=== PATIENT | female | born 1990 | race Caucasian/White ===

== ENCOUNTER → 2019-08-24 14:57 | Outpatient (BNVA) | payer BC, OTHER, SELFPAY | PROVIDERS: Family Provider Family Medicine; PCP Family Medicine; Visit Provider Obstetrics & Gynecology | DX: Z01.89 Encounter for other specified special examinations (principal) ==

== ENCOUNTER 2020-08-12 14:36 | Outpatient (CLI) | payer BC, SELFPAY ==
--- NOTE | 2020-08-12 15:00 | XRR_ITS ---
PROCEDURE INFORMATION: Exam: XR Abdomen, 1 View Exam date and time: 08/12/2020 2:50 PM Age: 29 years old Clinical indication: Condition or disease; Kidney or ureter condition; Calculus (stone) in kidney; Prior surgery; Surgery type: Lithotripsy; Additional info: HX of kidney stones TECHNIQUE: Imaging protocol: XR of the abdomen. Views: Frontal supine view of the abdomen. 1 View. COMPARISON: CR XR KUB [id number] 04/24/2018 7:13 AM FINDINGS: Gastrointestinal tract: Normal. No bowel dilation. Organs: Negative for radiographic evidence of urinary tract stones Bones/joints: Unremarkable. XR/XR KUB [id number] IMPRESSION: No acute findings.
== END 2020-08-12 14:37 | disposition home or self-care (01) ==
PROVIDERS: Family Provider Family Medicine; PCP Family Medicine; Visit Provider Urology
DX: Z87.442 Personal history of urinary calculi (principal)
CPT/HCPCS: 74018; 81003

== ENCOUNTER → 2020-08-29 16:43 | Outpatient (BNVA) | payer BC, SELFPAY | PROVIDERS: Family Provider Family Medicine; PCP Nurse Practitioner Family; Visit Provider Obstetrics & Gynecology | DX: R53.83 Other fatigue (principal); Z30.9 Encounter for contraceptive management, unspecified | CPT/HCPCS: 84443; 85027 ==

== ENCOUNTER 2022-08-17 13:24 | Outpatient (CLI) | payer BC, SELFPAY ==
--- NOTE | 2022-08-17 13:36 | XR_ITS ---
WS: [id number] Exam: XR KUB [id number] Date/Time of Exam: 08/17/2022 1:38 PM Reason For Exam: Urolithiasis No bowel obstruction or free air. Visualized organ margins are intact. 3 mm calcification superimpose s the lower pole the left kidney and may represent a renal stone. Bony structures are intact. Slight dextroscoliosis at the thoracolumbar junction. XR/XR KUB [id number] IMPRESSION: 1. No acute abdominal finding. 2. 3 mm calcification superimposing the left renal silhouette could represent a small renal stone.
== END 2022-08-17 13:25 | disposition home or self-care (01) ==
PROVIDERS: PCP Nurse Practitioner Family; Visit Provider Urology
DX: N20.0 Calculus of kidney (principal)
CPT/HCPCS: 74018; 81003

== ENCOUNTER → 2022-11-25 16:20 | Outpatient (BNVA) | payer BC, SELFPAY | PROVIDERS: PCP Nurse Practitioner Family; Visit Provider Nurse Practitioner Women's Health | DX: Z12.4 Encounter for screening for malignant neoplasm of cervix (principal) | CPT/HCPCS: 87624 ==

== ENCOUNTER 2023-02-20 10:11 | Emergency (ER) | payer BC, SELFPAY ==
[2023-02-20 10:16] VITALS: BP 131/86; PULSE 94; RESP 18; TEMP 36.4; O2SAT 99; BMI 24.7
[2023-02-20] MEDS: sodium chloride 0.9% 1,000 ML 999 ML IV (10:32)
[2023-02-20] MEDS: ondansetron 2 mg/ML SDV 2 mL 4 MG IVP (10:32)
[2023-02-20 10:38] VITALS: BP 131/86; PULSE 98; RESP 18; O2SAT 95
--- NOTE | 2023-02-20 10:42 | CTR_ITS ---
PROCEDURE INFORMATION: Exam: CT Abdomen And Pelvis With Contrast Exam date and time: 02/20/2023 11:01 AM Age: 32 years old Clinical indication: Abdominal pain; Localized; Right upper quadrant (ruq); Additional info: Ruq pain, vomiting TECHNIQUE: Imaging protocol: Computed tomography of the abdomen and pelvis with contrast. Radiation optimization: All CT scans at this facility use at least one of these dose optimization techniques: automated exposure control; mA and/or kV adjustment per patient size (includes targeted exams where dose is matched to clinical indication); or iterative reconstruction. Contrast material: OMNI 350; Contrast volume: 100 ml; Contrast route: INTRAVENOUS (IV); REPORTING DATA: Count of CT and Cardiac NM exams in prior 12 months: This patient has received 0 known CTs and 0 known cardiac nuclear medicine studies in the 12 months prior to the current study. COMPARISON: CT abdomen pelvis w con* [id number] 11/17/2017 10:18 AM RADIATION DOSE METRICS: Total DLP (mGy-cm): 487.08 FINDINGS: Liver: Area of hypoattenuation along the anterior margin of the liver adjacent to the falciform ligament consistent with focal fatty infiltration. Gallbladder and bile ducts: The gallbladder appears unremarkable. No intra- or extra-hepatic biliary ductal dilatation. Pancreas: The pancreas appears normal. Spleen: Small splenule noted. The spleen appears unremarkable. Adrenal glands: The adrenals appear normal. Kidneys and ureters: 3 mm stone in the lower pole of the left kidney. No ureteral stones identified. No signs of urinary obstruction. Stomach and bowel: The stomach is unremarkable. The small bowel loops are not abnormally dilated. The large bowel loops are not abnormally dilated. Appendix: The appendix appears normal. Intraperitoneal space: No ascites or significant fluid collection. Vasculature: The aorta is nonaneurysmal. The IVC appears normal. Lymph nodes: There are no enlarged lymph nodes. Urinary bladder: The urinary bladder is not well distended, therefore not well evaluated. Reproductive: 14 mm fluid density cyst in the right adnexal region. The uterus appears normal. Bones/joints: Unremarkable. Soft tissues: Unremarkable. CT/CT abdomen pelvis w con* [id number] IMPRESSION: 1. No acute abdominopelvic abnormality identified. 2. The gallbladder appears unremarkable. 3. Left-sided nephrolithiasis. No signs of urinary obstruction.
--- NOTE | 2023-02-20 10:43 | ED_ITS ---
Documented by User: Shae Gonzales PA-C 02/20/23 11:58 HPI - Nausea/Vomiting/Diarrhea General: Chief complaint: Nausea/Vomiting/Diarrhea Stated complaint: n/v Time Seen by Provider: 02/20/23 10:15 Source: patient Mode of arrival: ambulatory Limitations: no limitations History of Present Illness: 32-year-old female presents to the ER today for nausea and vomiting for the last 3 days. Patient reports 1 week ago she started with congestion fever and body aches. Patient reports that lasted until . On patient finally had an appetite so she ate a steak for dinner. Patient reports by Tuesday morning she was vomiting profusely. Patient reports multiple episodes of vomiting each day. Patient reports no blood in her vomit. Denies any diarrhea. Patient reports pain in her chest from the amount she is thrown up. She describes this as a burning pain. She is been unable to keep any liquids or solids down for the last 48+ hours. Patient denies any close sick contacts. Denies any recent travel or swimming in any [place] or [place]. Patient has not t ried anything for her symptoms at this time. Denies any urinary symptoms or pain with urination. LMP was 1 week ago. Patient is on control. Review of Systems General: Reports: 10 or more systems reviewed and unremarkable except in HPI and below PFSH ED PFSH: Medical History Asthma As a child Chronic GERD Urolithiasis Surgical History History of lithotripsy (06/13/14) Laser lithotripsy of right ureteral stone treated by Dr. Mckeon at [facility] [place]. Family History Mother Hypertension Thyroid condition Father Hypertension Hyperlipidemia Grandmother Hypertension Diabetes Maternal Heart disease maternal Breast cancer paternal Grandfather Hypertension Unknown Stroke Social History Smoking and tobacco status: former smoker Alcohol intake: current Alcohol intake frequency: few times a month Marital status: Physical Exam Const: COMMON NORMALS: average body habitus, patient oriented x3, no limitations, healthy appearing, alert and well nourished HENMT: COMMON NORMALS: normocephalic, atraumatic, external ears normal, Normal external nose present, moist oral mucous membranes and oropharynx normal HEAD & SCALP: normocephalic and atraumatic NOSE: Normal external nose present EXTERNAL EAR: Yes external ears normal Resp: COMMON NORMALS: normal respiratory effort, No retractions and clear to auscultation bilaterally AUSCULTATION: clear to auscultation bilaterally Cardio: COMMON NORMALS: regular rate, regular rhythm and No murmurs present (Cardio) RATE: regular rate RHYTHM: regular rhythm GI: COMMON NORMALS: Normal to inspection, nondistended, normoactive bowel sounds present and Soft to palpation PALPATION: Yes Soft to palpation and Yes Tenderness to palpation present (GI) Details: RLQ and RUQ (RUQ worse than RLQ) Extremity: COMMON NORMALS: normal to inspection and full ROM Neuro: COMMON NORMALS: patient oriented x3 SENSORIUM/ORIENTATION: Yes alert Psych: COMMON NORMALS: mental status grossly normal, Normal thought process present and cooperative THOUGHT PROCESS: Normal thought process present Skin: COMMON NORMALS: no rashes or lesions noted and no wounds GENERAL SKIN EXAM: no rashes or lesions noted Course ED course: Patient presents with greater than 48 hours of vomiting. No diarrhea associated. Recent upper respiratory infection but symptoms of that have improved. We will go ahead and start fluids and Zofran for symptoms. Based on physical exam, would recommend we go ahead with a CT abdomen pelvis. Patient is tender in the right upper quadrant with mild right lower quadrant tenderness. We will also get lab work. Vital Signs: Vital signs: Vital Signs Temperature 97.5 F L 02/20/23 10:16 Pulse Rate 92 02/20/23 12:02 Respiratory Rate 18 02/20/23 12:02 Blood Pressure 113/87 02/20/23 12:02 Pulse Oximetry 99 02/20/23 12:02 Oxygen Delivery Me thod Room Air 02/20/23 12:02 MDM - Nausea/Vomiting/Diarrhea Medical Decision Making Patient has a slightly elevated white count however all of the labs are mostly unremarkable. Likely the abnormals are related to patient's probable gastritis/gastroenteritis. Unlikely this is a traveler's diarrhea given patient does not currently have any diarrhea-like symptoms. We will send patient home with Zofran for nausea and omeprazole for the gastritis type of symptoms. Patient's CT of the abdomen pelvis was mostly unremarkable other than a chance finding of some nephrolithiasis however patient is asymptomatic for that. Re commend patient take these medications and if symptoms or not improving in 2 to 3 days, follow-up with PCP. We discussed the brat diet and making sure to ease into eating. Push fluids and use Gatorade/Pedialyte to replenish electrolytes. Return to the ER with any new or worsening symptoms. Patient verbalized understanding and was in agreement with the treatment plan. Lab Data 02/20/23 10:30 02/20/23 10:30 Radiology Impressions Abdomen/Pelvis CT 02/20/23 10:42 IMPRESSION: 1. No acute abdominopelvic abnormality identified. 2. The gallbladder appears unremarkable. 3. Left-sided nephrolithiasis. No signs of urinary obstruction. Laboratory Results WBC 11.6 10^3/uL (4.0-10.0) H 02/20/23 10:30 RBC 5.41 10^6/uL (4.1-5.3) H 02/20/23 10:30 Hgb 15.5 g/dL (11.5-15.3) H 02/20/23 10:30 Hct 46.7 % (37.0-47.0) 02/20/23 10:30 MCV 86.3 fl (81-99) 02/20/23 10:30 MCH 28.7 pg (28.0-34.0) 02/20/23 10:30 MCHC 33.2 g/dL (30.0-36.0) 02/20/23 10:30 RDW 13.2 % (12.1-15.1) 02/20/23 10:30 Plt Count 402 10^3/cmm (130-400) H 02/20/23 10:30 MPV 10.5 fL (7.4-10.4) H 02/20/23 10:30 Neut % (Auto) 61.4 % 02/20/23 10:30 Lymph % (Auto) 31.5 % 02/20/23 10:30 [place] % (Auto) 5.4 % 02/20/23 10:30 Eos % (Auto) 0.9 % 02/20/23 10:30 Baso % (Auto) 0.5 % 02/20/23 10:30 Neut # (Auto) 7.12 10^3/uL (1.8-7.7) 02/20/23 10:30 Lymph # (Auto) 3.6 10^3/uL (0.8-4.8) 02/20/23 10:30 [place] # (Auto) 0.6 10^3/uL (0.2-0.9) 02/20/23 10:30 Eos # (Auto) 0.1 10^3/uL (0.0-0.8) 02/20/23 10:30 Baso # (Auto) 0.1 10^3/uL (0.0-0.1) 02/20/23 10:30 Nucleated RBC % (auto) 0 % 02/20/23 10:30 Nucleated RBCs # 0.0 /100WBC 02/20/23 10:30 Sodium 136 mmol/L (136-145) 02/20/23 10:30 Potassium 4.1 mmol/L (3.5-5.1) 02/20/23 10:30 Chloride 97 mmol/L (98-107) L 02/20/23 10:30 Carbon Dioxide 16 mmol/L (22-29) L 02/20/23 10:30 Anion Gap 27.1 (5-19) H 02/20/23 10:30 BUN 9 mg/dL (6-20) 02/20/23 10:30 Creatinine 0.8 mg/dL (0.5-0.9) 02/20/23 10:30 GFR Calculation 83.7 mL/min (90-130) L 02/20/23 10:30 Glucose 70 mg/dL (65-115) 02/20/23 10:30 Calculated Osmolality 279 mOsm/kg (285-295) L 02/20/23 10:30 Calcium 9.9 mg/dL (8.5-10.5) 02/20/23 10:30 Total Bilirubin 0.6 mg/dL (0.15-1.2) 02/20/23 10:30 AST 29 U/L (0-32) 02/20/23 10:30 ALT 30 U/L (0-33) 02/20/23 10:30 Alkaline Phosphatase 97 U/L (35-105) 02/20/23 10:30 Total Protein 9.4 g/dL (6.6-8.7) H 02/20/23 10:30 Albumin 5.0 g/dL (3.5-5.2) 02/20/23 10:30 Globulin 4.4 g/dL (1.3-4.6) 02/20/23 10:30 Lipase 30 U/L (13-60) 02/20/23 10:30 HCG, Qual Negative (Negative) 02/20/23 10:30 Urine Color Yellow (Yellow) 02/20/23 10:30 Urine Appearance Sl hazy (CLEAR) A 02/20/23 10:30 Urine pH 5 (5-7) 02/20/23 10:30 Ur Specific [place] 1.030 (1.005-1.030) 02/20/23 10:30 Urine Protein Trace (Negative) 02/20/23 10:30 Urine Glucose (UA) Norm (Normal) 02/20/23 10:30 Urine Ketones 3+ (Negative) H 02/20/23 10:30 Urine Blood Neg (Negative) 02/20/23 10:30 Urine Nitrate Negative (Negative) 02/20/23 10:30 Urine Bilirubin Neg (Negative) 02/20/23 10:30 Urine Urobilinogen Norm mg/dL (Negative) 02/20/23 10:30 Ur Leukocyte Esterase Trace (Negative) H 02/20/23 10:30 Urine RBC None /hpf (0-2) 02/20/23 10:30 Urine WBC 15-25 /hpf (0-5) H 02/20/23 10:30 Ur Squamous Epith Cells 0-4 /hpf (0-5) H 02/20/23 10:30 Amorphous Sediment Not Reportable 02/20/23 10:30 Urine Bacteria Trace /hpf (NONE) 02/20/23 10:30 Urine Mucus Trace /hpf 02/20/23 10:30 Critical Care Time Critical Care Time: Critical Care Time: No Discharge Plan Discharge Patient Disposition: Home Clinical Impression: Gastritis Qualifiers: Gastritis type: unspecified gastritis Chronicity: acute Gastritis bleeding: without bleeding Qualified Code(s): K29.00 - Acute gastritis without bleeding Condition: Stable Prescriptions: New ondansetron HCl 4 mg tablet 4 mg PO Q8H PRN (Reason: nausea and vomiting) 4 Days Qty: 12 0RF omeprazole 20 mg capsule,delayed release(DR/EC) 20 mg PO DAILY Qty: 15 0RF No Action norgestimate-ethinyl estradiol [Estarylla] 0.25-35 mg-mcg tablet 1 tab PO DAILY Qty: 84 3RF omeprazole 40 mg capsule,delayed release(DR/EC) 40 mg PO DAILY Mounjaro 7.5 mg/0.5 mL Pen Injector See Rx Instructions .ROUTE .COMPLEX Rx Instructions: 7.5 MG/0.5 ML ONCE WEEKLY ON TUESDAY Discharge Orders: Discharge ED (Routine); Ordered 02/20/23 Ordered By: Shae Gonzales Referrals: Anusha Daniel [Primary Care Provider] - Discharge Diet: Advance as tolerated Discharge Activity: Resume usual activity Patient Instructions: Opioid Safety, Pain Management Activity Restrictions/Additional Instructions: Take Zofran for nausea. Take omeprazole as prescribed for reflux type of pain. Brat diet recommended. Push fluids and recommend Gatorade or Pedialyte to replenish electrolytes. Follow-up PCP in 2 to 3 days if no improvement. Return to the ER with new or worsening symptoms. Stand Alone Forms: Work/School Release Coding Level of Care Code ED [place] for [employer] Fwd Documented by User: Pritesh Wallace DO 02/21/23 06:39 HPI - Nausea/Vomiting/Diarrhea General: Chief complaint: Nausea/Vomiting/Diarrhea Stated complaint: n/v Time Seen by Provider: 02/20/23 10:15 [facility] ED PFSH: Medical History Asthma As a child Chronic GERD Urolithiasis Surgical History History of lithotripsy (06/13/14) Laser lithotripsy of right ureteral stone treated [place] Dr[place] Mckeon [place] [facility] [place]. Family History Mother Hypertension Thyroid condition Father Hypertension Hyperlipidemia Grandmother Hypertension Diabetes Maternal Heart disease maternal Breast cancer paternal Grandfather Hypertension Unknown Stroke Social History Smoking and tobacco status: former smoker Alcohol intake: current Alcohol intake frequency: few times a month Marital status: Course Vital Signs: Vital signs: Vital Signs Temperature 97.5 F L 02/20/23 10:16 Pulse Rate 92 02/20/23 12:02 Respiratory Rate 18 02/20/23 12:02 Blood Pressure 113/87 02/20/23 12:02 Pulse Oximetry 99 02/20/23 12:02 Oxygen Delivery Me thod Room Air 02/20/23 12:02 MDM - Nausea/Vomiting/Diarrhea Medical Decision Making Patient has a slightly elevated white count however all of the labs are mostly unremarkable. Likely the abnormals are related to patient's probable gastritis/gastroenteritis. Unlikely this is a traveler's diarrhea given patient does not currently have any diarrhea-like symptoms. We will send patient home with Zofran for nausea and omeprazole for the gastritis type of symptoms. Patient's CT of the abdomen pelvis was mostly unremarkable other than a chance finding of some nephrolithiasis however patient is asymptomatic for that. Recommend patient take these medications and if symptoms or not improving in 2 to 3 days, follow-up with PCP. We discussed the brat diet and making sure to ease into eating. Push fluids and use Gatorade/Pedialyte to replenish electrolytes. Return to the ER with any new or worsening symptoms. Patient verbalized understanding and was in agreement with the treatment plan. Chart reviewed and patient discussed with midlevel. Agree with assessment and plan. Lab Data 02/20/23 10:30 02/20/23 10:30 Radiology Impressions Abdomen/Pelvis CT 02/20/23 10:42 IMPRESSION: 1. No acute abdominopelvic abnormality identified. 2. The gallbladder appears unremarkable. 3. Left-sided nephrolithiasis. No signs of urinary obstruction. Laboratory Results WBC 11.6 10^3/uL (4.0-10.0) H 02/20/23 10:30 RBC 5.41 10^6/uL (4.1-5.3) H 02/20/23 10:30 Hgb 15.5 g/dL (11.5-15.3) H 02/20/23 10:30 Hct 46.7 % (37.0-47.0) 02/20/23 10:30 MCV 86.3 fl (81-99) 02/20/23 10:30 MCH 28.7 pg (28.0-34.0) 02/20/23 10:30 MCHC 33.2 g/dL (30.0-36.0) 02/20/23 10:30 RDW 13.2 % (12.1-15.1) 02/20/23 10:30 Plt Count 402 10^3/cmm (130-400) H 02/20/23 10:30 MPV 10.5 fL (7.4-10.4) H 02/20/23 10:30 Neut % (Auto) 61.4 % 02/20/23 10:30 Lymph % (Auto) 31.5 % 02/20/23 10:30 [place] % (Auto) 5.4 % 02/20/23 10:30 Eos % (Auto) 0.9 % 02/20/23 10:30 Baso % (Auto) 0.5 % 02/20/23 10:30 Neut # (Auto) 7.12 10^3/uL (1.8-7.7) 02/20/23 10:30 Lymph # (Auto) 3.6 10^3/uL (0.8-4.8) 02/20/23 10:30 [place] # (Auto) 0.6 10^3/uL (0.2-0.9) 02/20/23 10:30 Eos # (Auto) 0.1 10^3/uL (0.0-0.8) 02/20/23 10:30 Baso # (Auto) 0.1 10^3/uL (0.0-0.1) 02/20/23 10:30 Nucleated RBC % (auto) 0 % 02/20/23 10:30 Nucleated RBCs # 0.0 /100WBC 02/20/23 10:30 Sodium 136 mmol/L (136-145) 02/20/23 10:30 Potassium 4.1 mmol/L (3.5-5.1) 02/20/23 10:30 Chloride 97 mmol/L (98-107) L 02/20/23 10:30 Carbon Dioxide 16 mmol/L (22-29) L 02/20/23 10:30 Anion Gap 27.1 (5-19) H 02/20/23 10:30 BUN 9 mg/dL (6-20) 02/20/23 10:30 Creatinine 0.8 mg/dL (0.5-0.9) 02/20/23 10:30 GFR Calculation 83.7 mL/min (90-130) L 02/20/23 10:30 Glucose 70 mg/dL (65-115) 02/20/23 10:30 Calculated Osmolality 279 mOsm/kg (285-295) L 02/20/23 10:30 Calcium 9.9 mg/dL (8.5-10.5) 02/20/23 10:30 Total Bilirubin 0.6 mg/dL (0.15-1.2) 02/20/23 10:30 AST 29 U/L (0-32) 02/20/23 10:30 ALT 30 U/L (0-33) 02/20/23 10:30 Alkaline Phosphatase 97 U/L (35-105) 02/20/23 10:30 Total Protein 9.4 g/dL (6.6-8.7) H 02/20/23 10:30 Albumin 5.0 g/dL (3.5-5.2) 02/20/23 10:30 Globulin 4.4 g/dL (1.3-4.6) 02/20/23 10:30 Lipase 30 U/L (13-60) 02/20/23 10:30 HCG, Qual Negative (Negative) 02/20/23 10:30 Urine Color Yellow (Yellow) 02/20/23 10:30 Urine Appearance Sl hazy (CLEAR) A 02/20/23 10:30 Urine pH 5 (5-7) 02/20/23 10:30 Ur Specific [place] 1.030 (1.005-1.030) 02/20/23 10:30 Urine Protein Trace (Negative) 02/20/23 10:30 Urine Glucose (UA) Norm (Normal) 02/20/23 10:30 Urine Ketones 3+ (Negative) H 02/20/23 10:30 Urine Blood Neg (Negative) 02/20/23 10:30 Urine Nitrate Negative (Negative) 02/20/23 10:30 Urine Bilirubin Neg (Negative) 02/20/23 10:30 Urine Urobilinogen Norm mg/dL (Negative) 02/20/23 10:30 Ur Leukocyte Esterase Trace (Negative) H 02/20/23 10:30 Urine RBC None /hpf (0-2) 02/20/23 10:30 Urine WBC 15-25 /hpf (0-5) H 02/20/23 10:30 Ur Squamous Epith Cells 0-4 /hpf (0-5) H 02/20/23 10:30 Amorphous Sediment Not Reportable 02/20/23 10:30 Urine Bacteria Trace /hpf (NONE) 02/20/23 10:30 Urine Mucus Trace /hpf 02/20/23 10:30 Discharge Plan Discharge Patient Disposition: Home Clinical Impression: Gastritis Qualifiers: Gastritis type: unspecified gastritis Chronicity: acute Gastritis bleeding: without bleeding Qualified Code(s): K29.00 - Acute gastritis without bleeding Condition: Stable Prescriptions: New ondansetron HCl 4 mg tablet 4 mg PO Q8H PRN (Reason: nausea and vomiting) 4 Days Qty: 12 0RF omeprazole 20 mg capsule,delayed release(DR/EC) 20 mg PO DAILY Qty: 15 0RF No Action norgestimate-ethinyl estradiol [Estarylla] 0.25-35 mg-mcg tablet 1 tab PO DAILY Qty: 84 3RF omeprazole 40 mg capsule,delayed release(DR/EC) 40 mg PO DAILY Mounjaro 7.5 mg/0.5 mL Pen Injector See Rx Instructions .ROUTE .COMPLEX Rx Instructions: 7.5 MG/0.5 ML ONCE WEEKLY ON TUESDAY Discharge Orders: Discharge ED (Routine); Ordered 02/20/23 Ordered By: Shae Gonzales Referrals: Anusha Daniel [Primary Care Provider] - Discharge Diet: Advance as tolerated Discharge Activity: Resume usual activity Patient Instructions: Opioid Safety, Pain Management Activity Restrictions/Additional Instructions: Take Zofran for nausea. Take omeprazole as prescribed for reflux type of pain. Brat diet recommended. Push fluids and recommend Gatorade or Pedialyte to replenish electrolytes. Follow-up PCP in 2 to 3 days if no improvement. Return to the ER with new or worsening symptoms. Stand Alone Forms: Work/School Release Coding Level of Care Code ED [place] for [facility]
[2023-02-20 10:49] LABS: Basophils # 0.1 10^3/uL (0.0-0.1); Basophils % 0.5 %; Eosinophils # 0.1 10^3/uL (0.0-0.8); Eosinophils % 0.9 %; Hematocrit 46.7 % (37.0-47.0); Hemoglobin 15.5 g/dL (11.5-15.3); Lymphocytes # 3.6 10^3/uL (0.8-4.8); Lymphocytes % 31.5 %; Mean Corpuscular HGB Conc 33.2 g/dL (30.0-36.0); Mean Corpuscular Hemoglobin 28.7 pg (28.0-34.0); Mean Corpuscular Volume 86.3 fl (81-99); Mean Platelet Volume 10.5 fL (7.4-10.4); Monocytes # 0.6 10^3/uL (0.2-0.9); Monocytes % 5.4 %; Neutrophils # 7.12 10^3/uL (1.8-7.7); Neutrophils % 61.4 %; Nucleated Red Blood Cells % 0 %; Platelet Count 402 10^3/cmm (130-400); Red Blood Count 5.41 10^6/uL (4.1-5.3); Red Cell Distribution Width 13.2 % (12.1-15.1); White Blood Count 11.6 10^3/uL (4.0-10.0)
[2023-02-20 10:51] LABS: HCG Qualitative Urine. Negative (Negative)
[2023-02-20 10:58] LABS: Add Urine Microscopic? YES; Bilirubin Urine Neg (Negative); Blood Urine Neg (Negative); Glucose Urine UA Norm (Normal); Ketones Urine 3+ (Negative); Leukocyte Esterase Urine Trace (Negative); Nitrate Urine Negative (Negative); Protein Urine Trace (Negative); Urine Appearance SL Hazy (CLEAR); Urine Color Yellow (Yellow); Urobilinogen Urine Norm (Negative); pH Urine 5 (5-7)
[2023-02-20 10:59] LABS: Add Urine Culture? No; Bacteria Urine TRACE /hpf; Mucus Urine TRACE /hpf; Squamous Epithelial Cell Urine 0-4 /hpf (0-5); WBC Urine 15-25 /hpf (0-5)
[2023-02-20] MEDS: iohexol 350 mg/mL 500 mL Btl (per mL) IV (11:03)
[2023-02-20 11:10] LABS: Alanine Aminotransferase 30 U/L (0-33); Alkaline Phosphatase 97 U/L (35-105); Anion Gap 27.1 (5-19); Aspartate Amino Transferase 29 U/L (0-32); Blood Urea Nitrogen 9 mg/dL (6-20); Calcium 9.9 mg/dL (8.5-10.5); Carbon Dioxide 16 mmol/L (22-29); Chloride 97 mmol/L (98-107); Globulin 4.4 g/dL (1.3-4.6); Glomerular Filtration Rate 83.7 mL/min (90-130); Glucose 70 mg/dL (65-115); Lipase 30 U/L (13-60); Osmolality Calculated 279 mOsm/kg (285-295); Potassium 4.1 mmol/L (3.5-5.1); Sodium 136 mmol/L (136-145); Total Bilirubin 0.6 mg/dL (0.15-1.2); Total Protein 9.4 g/dL (6.6-8.7)
[2023-02-20 11:32] VITALS: BP 113/87; PULSE 91; RESP 18; O2SAT 97
[2023-02-20] MEDS: aluminum-mag hydrox-simethicon 30 ML, sucralfate oral liq 1 GM PO (12:00)
[2023-02-20 12:02] VITALS: BP 113/87; PULSE 92; RESP 18; O2SAT 99
== END 2023-02-20 12:12 | disposition home or self-care (01) ==
PROVIDERS: Emergency Provider Physician Assistant; PCP Nurse Practitioner Family
DX: K29.00 Acute gastritis without bleeding (principal); Z87.891 Personal history of nicotine dependence
CPT/HCPCS: 74177; 80053; 81001; 81025; 83690; 85025; 96361; 96374; 99285; J2405; J7030; Q9967